=== PATIENT | female | born 1955 | race Caucasian/White ===

== ENCOUNTER 2018-04-06 21:17 | Inpatient (IN) | payer BC ==
[~2018-04-06] VITALS: Ht 185.4 cm; Wt 92.7 kg
[2018-04-06 22:17] LABS: BASOPHIL % 0.3 % (0-2); PLATELET COUNT 227 x10^3mcL (130-400); RED CELL DISTRIBUTION WIDTH 14.7 % (11.5-14.5)
[2018-04-06 22:24] LABS: CALCIUM 9.4 mg/dL (8.5-10.1); CARBON DIOXIDE 25.3 mmol/L (21-32); POTASSIUM SERUM 4.4 mmol/L (3.5-5.1)
[2018-04-06 22:29] LABS: BILIRUBIN TOTAL 0.84 mg/dL (0.20-1.00); TOTAL PROTEIN, SERUM 7.6 g/dL (6.4-8.2)
[2018-04-06 23:02] LABS: CHOLESTEROL/HDL RATIO 2.7
[2018-04-06 23:03] LABS: T3 TOTAL 1.52 ng/mL
[2018-04-06 23:11] LABS: FREE T4 1.27 ng/dL (0.76-1.46); FREE THYROXINE INDEX 3.3 ug/dL (1.4-4.5); T4(THYROXINE) 9.1 ug/dL (4.7-13.3)
[2018-04-07 01:01] LABS: UA SPECIFIC GRAVITY 1.025 (1.005-1.035); microscopic required? YES; urine erythrocyte 3+ (NEGATIVE)
[2018-04-07] MEDS ORDERED: XARELTO10 M1 PO (01:58)
[2018-04-07 02:34] LABS: MAGNESIUM 1.9 mg/dL (1.8-2.4); PHOSPHOROUS 4.7 mg/dL (2.5-4.9)
[2018-04-07 04:02] VITALS: BP 138/72
[2018-04-07 04:18] LABS: BASOPHIL % 0.2 % (0-2); PLATELET COUNT 189 x10^3mcL (130-400); RED CELL DISTRIBUTION WIDTH 13.9 % (11.5-14.5)
[2018-04-07 04:30] LABS: CALCIUM 8.1 mg/dL (8.5-10.1); CARBON DIOXIDE 23.1 mmol/L (21-32); CHLORIDE SERUM 108 mmol/L (98-107); CREATININE SERUM 0.8 mg/dL (0.6-1.0); GFR1 > 60 mL/min; GLUCOSE SERUM 112 mg/dL (74-106); LACTIC DEHYDROGENASE (LDH) 128 U/L (100-190); MAGNESIUM 1.8 mg/dL (1.8-2.4); PHOSPHOROUS 4.5 mg/dL (2.5-4.9); POTASSIUM SERUM 4.1 mmol/L (3.5-5.1); SODIUM SERUM 140 mmol/L (136-145)
[2018-04-07 05:35] VITALS: BP 103/53
[2018-04-07 09:30] VITALS: BP 114/55
[2018-04-07 12:30] VITALS: BP 106/61
[2018-04-07 17:03] VITALS: BP 116/67
[2018-04-07 20:36] VITALS: BP 106/56
[2018-04-08 05:26] VITALS: BP 116/65
[2018-04-08 06:26] LABS: BASOPHIL % 0.3 % (0-2); PLATELET COUNT 182 x10^3mcL (130-400); RED CELL DISTRIBUTION WIDTH 13.5 % (11.5-14.5)
[2018-04-08 06:41] LABS: CALCIUM 8.7 mg/dL (8.5-10.1); CARBON DIOXIDE 28.4 mmol/L (21-32); CHLORIDE SERUM 106 mmol/L (98-107); CREATININE SERUM 0.8 mg/dL (0.6-1.0); GFR1 > 60 mL/min; GLUCOSE SERUM 90 mg/dL (74-106); PHOSPHOROUS 3.1 mg/dL (2.5-4.9); POTASSIUM SERUM 4.1 mmol/L (3.5-5.1); SODIUM SERUM 140 mmol/L (136-145)
[2018-04-08 06:43] LABS: LIPASE 1427 IU/L (73-393)
[2018-04-08 09:25] VITALS: BP 123/66
[2018-04-08 12:34] LABS: ALBUMIN 3.2 g/dL (3.4-5.0); BILIRUBIN DIRECT 0.12 mg/dL (0.0-0.2); BILIRUBIN TOTAL 0.6 mg/dL (0.20-1.00); TOTAL PROTEIN, SERUM 6.7 g/dL (6.4-8.2)
[2018-04-08 12:38] VITALS: BP 115/62
[2018-04-08 17:06] VITALS: BP 144/70
[2018-04-08 20:52] VITALS: BP 121/71
[2018-04-09 06:02] LABS: BASOPHIL % 0.5 % (0-2); PLATELET COUNT 183 x10^3mcL (130-400); RED CELL DISTRIBUTION WIDTH 13.3 % (11.5-14.5)
[2018-04-09 06:15] VITALS: BP 116/63
[2018-04-09 06:31] LABS: CALCIUM 8.7 mg/dL (8.5-10.1); CARBON DIOXIDE 28.1 mmol/L (21-32); CHLORIDE SERUM 106 mmol/L (98-107); CREATININE SERUM 0.7 mg/dL (0.6-1.0); GFR1 > 60 mL/min; GLUCOSE SERUM 83 mg/dL (74-106); PHOSPHOROUS 3.4 mg/dL (2.5-4.9); POTASSIUM SERUM 3.9 mmol/L (3.5-5.1); SODIUM SERUM 142 mmol/L (136-145)
[2018-04-09 09:10] VITALS: BP 114/65
[2018-04-09] MEDS ORDERED: PROZAC20 MG PO (09:38)
[2018-04-09] MEDS ORDERED: BUPROPION HCL150 MG PO (09:39)
[2018-04-09 12:17] VITALS: BP 118/71
[2018-04-09 16:12] VITALS: BP 124/71
[2018-04-09 19:07] VITALS: BP 121/69
[2018-04-10 05:33] VITALS: BP 125/72
[2018-04-10 06:25] LABS: BASOPHIL % 0.5 % (0-2); PLATELET COUNT 182 x10^3mcL (130-400); RED CELL DISTRIBUTION WIDTH 13.9 % (11.5-14.5)
[2018-04-10 06:27] LABS: CALCIUM 8.9 mg/dL (8.5-10.1); CHLORIDE SERUM 107 mmol/L (98-107); CREATININE SERUM 0.8 mg/dL (0.6-1.0); GFR1 > 60 mL/min; GLUCOSE SERUM 90 mg/dL (74-106); SODIUM SERUM 141 mmol/L (136-145)
[2018-04-10] MEDS ORDERED: OXYBUTYNIN CHLOR5 M2 PO (09:20)
[2018-04-10 09:27] VITALS: BP 113/83
[2018-04-10 12:51] VITALS: BP 109/62
[2018-04-10 15:58] VITALS: BP 115/70
[2018-04-10 21:29] VITALS: BP 135/69
[2018-04-11 05:52] VITALS: BP 121/75
[2018-04-11 06:35] LABS: CARBON DIOXIDE 27.1 mmol/L (21-32); CHLORIDE SERUM 108 mmol/L (98-107); CREATININE SERUM 0.8 mg/dL (0.6-1.0); GFR1 > 60 mL/min; GLUCOSE SERUM 92 mg/dL (74-106); MAGNESIUM 2.2 mg/dL (1.8-2.4); PHOSPHOROUS 4.3 mg/dL (2.5-4.9); POTASSIUM SERUM 3.9 mmol/L (3.5-5.1); SODIUM SERUM 142 mmol/L (136-145)
[2018-04-11 07:23] LABS: BASOPHIL % 0.5 % (0-2); PLATELET COUNT 189 x10^3mcL (130-400); RED CELL DISTRIBUTION WIDTH 13.8 % (11.5-14.5)
[2018-04-11 08:56] VITALS: BP 114/78
[2018-04-11 17:30] VITALS: BP 103/62
[2018-04-11 20:00] VITALS: BP 112/66
[2018-04-11 20:39] VITALS: BP 112/69
[2018-04-12 05:40] VITALS: BP 107/54
[2018-04-12 07:05] LABS: BASOPHIL % 0.2 % (0-2); PLATELET COUNT 199 x10^3mcL (130-400); RED CELL DISTRIBUTION WIDTH 14.1 % (11.5-14.5)
[2018-04-12 07:19] LABS: CALCIUM 8.9 mg/dL (8.5-10.1); CHLORIDE SERUM 105 mmol/L (98-107); CREATININE SERUM 0.7 mg/dL (0.6-1.0); GFR1 > 60 mL/min; GLUCOSE SERUM 83 mg/dL (74-106); MAGNESIUM 2.2 mg/dL (1.8-2.4); PHOSPHOROUS 3.3 mg/dL (2.5-4.9); POTASSIUM SERUM 3.9 mmol/L (3.5-5.1); SODIUM SERUM 140 mmol/L (136-145)
[2018-04-12 08:45] VITALS: BP 138/78
[2018-04-12 09:28] LABS: BILIRUBIN DIRECT 0.1 mg/dL (0.0-0.2); BILIRUBIN TOTAL 0.29 mg/dL (0.20-1.00)
[2018-04-12 09:30] LABS: ALBUMIN 3.2 g/dL (3.4-5.0)
[2018-04-12 12:22] VITALS: BP 130/68
[2018-04-12 17:21] VITALS: BP 126/78
[2018-04-12 20:41] VITALS: BP 119/69
[2018-04-13 05:32] VITALS: BP 135/69
[2018-04-13 06:21] LABS: CALCIUM 8.5 mg/dL (8.5-10.1); CARBON DIOXIDE 26.3 mmol/L (21-32); CHLORIDE SERUM 106 mmol/L (98-107); CREATININE SERUM 0.8 mg/dL (0.6-1.0); GFR1 > 60 mL/min; GLUCOSE SERUM 83 mg/dL (74-106); MAGNESIUM 1.7 mg/dL (1.8-2.4); PHOSPHOROUS 3.3 mg/dL (2.5-4.9); POTASSIUM SERUM 3.7 mmol/L (3.5-5.1); SODIUM SERUM 142 mmol/L (136-145)
[2018-04-13 06:34] LABS: BASOPHIL % 0.4 % (0-2); PLATELET COUNT 183 x10^3mcL (130-400); RED CELL DISTRIBUTION WIDTH 14.1 % (11.5-14.5)
[2018-04-13 09:45] VITALS: BP 129/67
[2018-04-13 12:20] VITALS: BP 129/67
[2018-04-13 12:45] VITALS: BP 143/70
[2018-04-13] MEDS ORDERED: NOR10T PO (13:19)
== END 2018-04-13 15:20 | disposition home or self-care (01) | DRG 853 ==
LOC: ED 21:17 → DU 04-07 00:58
PROVIDERS: Family Medicine; Internal Medicine Gastroenterology; Specialist
PROC: 0FT44ZZ Resection of Gallbladder, Percutaneous Endoscopic Approach (ICD-10-PCS; principal; 2018-04-08)
DX: A41.9 Sepsis, unspecified organism (principal); N17.0 Acute kidney failure with tubular necrosis; K85.10 Biliary acute pancreatitis without necrosis or infection; N39.0 Urinary tract infection, site not specified; F10.239 Alcohol dependence with withdrawal, unspecified; I82.411 Acute embolism and thrombosis of right femoral vein; I82.431 Acute embolism and thrombosis of right popliteal vein; R65.20 Severe sepsis without septic shock; F41.8 Other specified anxiety disorders; F12.10 Cannabis abuse, uncomplicated; J45.909 Unspecified asthma, uncomplicated; Z87.891 Personal history of nicotine dependence; Z79.01 Long term (current) use of anticoagulants; Z86.718 Personal history of other venous thrombosis and embolism; F32.9 Major depressive disorder, single episode, unspecified; Y90.9 Presence of alcohol in blood, level not specified; Z90.49 Acquired absence of other specified parts of digestive tract; F41.9 Anxiety disorder, unspecified
CPT/HCPCS: 83880; 84439; 94150; C1887; G0480; J0690; J0696; J1170; J1644; J1885; J2060; J2175; J2250; J2270; J2405; J3010; J3490; J7030; J7620; Q0092; Q9967

== ENCOUNTER 2018-04-18 16:06 | Emergency (ER) | payer BC ==
[~2018-04-18] VITALS: Ht 185.4 cm; Wt 87.1 kg
[~2018-04-18 16:06] MED LIST: BUPROPION HCL150 MG PO; NOR10T PO; OXYBUTYNIN CHLOR5 M2 PO; PROZAC20 MG PO; XARELTO10 M1 PO
[2018-04-18 16:19] VITALS: Ht 185.4 cm; Wt 87.1 kg
[2018-04-18 17:02] LABS: BASOPHIL % 0.1 % (0-2); PLATELET COUNT 254 x10^3mcL (130-400); RED CELL DISTRIBUTION WIDTH 13.1 % (11.5-14.5)
[2018-04-18 17:21] LABS: CARBON DIOXIDE 21.2 mmol/L (21-32); CHLORIDE SERUM 101 mmol/L (98-107); CREATININE SERUM 0.7 mg/dL (0.6-1.0); GFR1 > 60 mL/min; GLUCOSE SERUM 105 mg/dL (74-106); POTASSIUM SERUM 4.5 mmol/L (3.5-5.1); SODIUM SERUM 137 mmol/L (136-145)
[2018-04-18 17:26] LABS: ALBUMIN 3.5 g/dL (3.4-5.0); ALKALINE PHOSPHATASE 106 U/L (46-116); ALT/SGPT 44 U/L (14-59); AST/SGOT 48 U/L (15-37); BILIRUBIN TOTAL 0.4 mg/dL (0.20-1.00); TOTAL PROTEIN, SERUM 7.1 g/dL (6.4-8.2)
[2018-04-18 17:51] LABS: LIPASE 16077 IU/L (73-393)
[2018-04-18 19:14] VITALS: BP 117/61
== END 2018-04-18 19:14 | disposition home or self-care (01) ==
LOC: ED 16:06
PROVIDERS: Emergency Medicine
DX: K85.90 Acute pancreatitis without necrosis or infection, unspecified (principal); Z90.49 Acquired absence of other specified parts of digestive tract
CPT/HCPCS: J1885; J2405; J7030